=== PATIENT | female | born 2000 | race Caucasian/White ===

== ENCOUNTER 2024-02-01 01:23 | Day surgery (SDC) | payer OTHER ==
[~2024-02-01] VITALS: Ht 170.2 cm; Wt 91.8 kg
[2024-02-01] VITALS (14 sets, daily range): BP systolic 99–124; BP diastolic 57–80; PULSE 51–87; TEMP 98.2–98.4
[~2024-02-01 01:23] MED LIST: LR 1,000 ML IV SCH; Morphine 4 MG/ML VIAL IV PRN; Ondansetron 4 MG/2 ML VIAL IV PRN
--- NOTE | 2024-02-01 03:11 | NUR ---
Patient arrived to the floor from [place] at 0134, A/Ox4, admission assessment and intake done, medrec reviewed, patient reports she doesn't take any home meds, reports pain to abdomen, PS of 8/10, medicated with morphine, reports nausea, medicated with zofran, denies further needs, call light and personal items within reach, will continue to monitor.
--- NOTE | 2024-02-01 05:20 | NUR ---
Patient resting in bed, looks comfortable, NPO maintained.
--- NOTE | 2024-02-01 06:50 | NUR ---
Pt sleeping. Call light in reach.
--- NOTE | 2024-02-01 09:16 | NUR ---
Pt laying in bed. A&Ox4. VSS. S1S2. Clear lungs on RA. ABD round, soft, tender on palpation or movement. Audible bowel sounds. Palpable pulses and 5/5 strength in all extremities. Pt denies n/v, headache, dizziness. IV in R AC patent with LR at 100cc/hr. Discussed Pre-Op instructions. Signed Consent. Pre-Op checklist complete. No further needs. Call light in reach.
[2024-02-01] MEDS ORDERED: BUPivacaine PF 0.5% w EPI (1:200,000) 10 ML VIAL SQ ONE (11:40)
--- NOTE | 2024-02-01 11:45 | NUR ---
PT OFF FLOOR IN OR.
[2024-02-01] MEDS ORDERED: Meperidine 50 MG/ML 1 ML VIAL IV PRN (12:00)
[2024-02-01] MEDS ORDERED: hydrALAZINE 20 MG/ML 1 ML VIAL IV PRN (12:00)
[2024-02-01] MEDS ORDERED: Ketorolac 15 MG/ML VIAL IV PRN (12:00)
[2024-02-01] MEDS ORDERED: HYDROmorphone 1 MG/1 ML SYRINGE [PACU/SDC ONLY] IV PRN (12:00)
[2024-02-01] MEDS ORDERED: fentaNYL 50 MCG/ML 1 ML SYRINGE/VIAL [PACU/SDC ONLY] IV PRN (12:00)
[2024-02-01] MEDS ORDERED: LR 1,000 ML IV SCH (12:00)
[2024-02-01] MEDS ORDERED: Ondansetron 4 MG/2 ML VIAL IV PRN (12:00)
--- NOTE | 2024-02-01 13:02 | NUR ---
Data: [facility] visit attempted during [facility] rounds. Patient was sleeping. Assessment: None. Patient was sleeping. Plan of Care: Chaplains will remain available as needed/requested while Patient is admitted to this hospital.
--- NOTE | 2024-02-01 13:43 | NUR ---
Pt is A&Ox4. VSS. S1S2. Clear lungs on RA. ABD is round, soft, tender with audible bowel sounds. Palpable pulses in all extremities with normal strength. Pt reporting pain 8/10 in lower ABD, specifically by umbilicus. Pt reporting feeling slightly nauseous. Call light in reach. No further needs.
--- NOTE | 2024-02-01 13:56 | NUR ---
SW met with patient to complete initial assessment for discharge planning. Patient is active stationed at [employer]. She lists her mother Lizy ([phone]) and a friend Dennys Saldaña ([phone]) as emergency contacts. Patient does not have a DPOA and declines to complete one stating her parents will make decisions if needed. Patient uses [facility] for health care and pharmacy. Patient uses no DME. she has a friend that will transport her home at discharge. No needs identified. Discharge plan: Home
[2024-02-01] MEDS ORDERED: NORCO 325 MG-51 TAB PO (15:41)
[2024-02-01] MEDS ORDERED: Home HYDROcodone/Acetaminophen 5/325 MG #4 TABS/PACK PO ONE (17:30)
--- NOTE | 2024-02-01 17:52 | NUR ---
Pt educated on D/C instructions and information packets. Answered Pt questions. Pt's pharmacy closed for weekend, called Dr White for Home [facility] script. Explained medication to Pt. Post Op VSS. D/C'ed Pt's IV from R AC. Pressure bandage applied. Pt going to get dressed. Told Pt to ring when ride gets here to have help down to car. Call light in reach.
== END 2024-02-01 18:00 | disposition home or self-care (01) ==
LOC: SURG 01:23 → SDCO 01:23 → SURG 01:24 → EDSTATUS 17:59 → SURG 18:00 → SDCO 18:00
DX: K35.80 Unspecified acute appendicitis (principal)
CPT/HCPCS: OP; G0378; J1170; J1885; J2270; J2405; J2543; J3010; J7120